=== PATIENT | male | born 1960 | race African-American/Black ===

== ENCOUNTER 2020-10-18 08:10 | Day surgery (SDC) | payer MEDICARE ==
[2020-10-17 13:21] VITALS: BMI 58.0
[2020-10-18] MEDS ORDERED: Lidocaine 1% PF 5 ML VIAL ONE (10:23)
[2020-10-18] MEDS ORDERED: PROPOFOL 200 MG/20 ML VIAL ONE (10:23)
== END 2020-10-18 12:45 | disposition home or self-care (01) ==
LOC: SDC 08:10
PROVIDERS: ATTEND Internal Medicine Gastroenterology
PROC: 0DBM8ZZ Excision of Descending Colon, Via Natural or Artificial Opening Endoscopic (ICD-10-PCS; principal; 2020-10-18)
PROC: 0DBL8ZZ Excision of Transverse Colon, Via Natural or Artificial Opening Endoscopic (ICD-10-PCS; 2020-10-18)
PROC: 0DBN8ZZ Excision of Sigmoid Colon, Via Natural or Artificial Opening Endoscopic (ICD-10-PCS; 2020-10-18)
PROC: 0DBP8ZZ Excision of Rectum, Via Natural or Artificial Opening Endoscopic (ICD-10-PCS; 2020-10-18)
DX: Z12.11 Encounter for screening for malignant neoplasm of colon (principal); D12.3 Benign neoplasm of transverse colon; D12.4 Benign neoplasm of descending colon; C18.7 Malignant neoplasm of sigmoid colon; K63.5 Polyp of colon; E66.01 Morbid (severe) obesity due to excess calories; Z68.43 Body mass index [BMI] 50.0-59.9, adult; Z79.899 Other long term (current) drug therapy; I10 Essential (primary) hypertension; Z86.16 Personal history of COVID-19; G47.30 Sleep apnea, unspecified
CPT/HCPCS: 88305; 88342; J2704

== ENCOUNTER 2020-12-12 13:32 | Outpatient (CLI) | payer MEDICARE | END 2020-12-12 13:33 | disposition home or self-care (01) | LOC: ULT 13:32 | PROVIDERS: ATTEND Internal Medicine Hematology & Oncology | DX: N28.9 Disorder of kidney and ureter, unspecified (principal); R93.429 Abnormal radiologic findings on diagnostic imaging of unspecified kidney; C18.7 Malignant neoplasm of sigmoid colon | CPT/HCPCS: 76770 ==

== ENCOUNTER 2021-01-03 10:20 | Outpatient (CLI) | payer MEDICARE ==
[2021-01-04 01:05] LABS: SARS-CoV-2 PCR by NAA Not Detected (NotDetected)
== END 2021-01-03 10:21 | disposition home or self-care (01) ==
LOC: LABBT 10:20
PROVIDERS: ATTEND Internal Medicine Gastroenterology
DX: C18.7 Malignant neoplasm of sigmoid colon (principal); Z85.038 Personal history of other malignant neoplasm of large intestine; Z20.822 Contact with and (suspected) exposure to COVID-19
CPT/HCPCS: U0003; U0005

== ENCOUNTER 2021-01-08 07:13 | Day surgery (SDC) | payer MEDICARE ==
[2021-01-07 13:20] VITALS: BMI 55.4
[2021-01-08] MEDS ORDERED: Lidocaine 1% PF 5 ML VIAL ONE (09:05)
[2021-01-08] MEDS ORDERED: PROPOFOL 200 MG/20 ML VIAL ONE (09:05)
== END 2021-01-08 10:25 | disposition home or self-care (01) ==
LOC: SDC 07:13
PROVIDERS: ATTEND Internal Medicine Gastroenterology
PROC: 0DBN8ZX Excision of Sigmoid Colon, Via Natural or Artificial Opening Endoscopic, Diagnostic (ICD-10-PCS; principal; 2021-01-08)
DX: C18.7 Malignant neoplasm of sigmoid colon (principal); K57.30 Diverticulosis of large intestine without perforation or abscess without bleeding; K59.00 Constipation, unspecified; K21.9 Gastro-esophageal reflux disease without esophagitis; M19.90 Unspecified osteoarthritis, unspecified site; I10 Essential (primary) hypertension; E66.9 Obesity, unspecified; Z68.43 Body mass index [BMI] 50.0-59.9, adult; Z86.010 Personal history of colon polyps; Z79.899 Other long term (current) drug therapy
CPT/HCPCS: 88305; J2704